=== PATIENT | female | born 1980 | race Hispanic/Latino ===

== ENCOUNTER 2018-04-22 00:57 | Emergency (ER) | payer SELFPAY ==
[2018-04-22 01:03] VITALS: BMI 21.9
[2018-04-22] MEDS ORDERED: Sodium Chloride 0.9% 1,000 ML IV STA (01:07)
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
[2018-04-22 02:37] LABS: BASO % 0.6 % (0.0-2.0); EOS # 0.1 K/uL (0.0-0.7); EOS % 2.6 % (0.0-4.0); HEMOGLOBIN 12.4 g/dL (12.0-16.0); LYMPH # 2.3 K/uL (1.0-4.3); LYMPH % 45.9 % (20.0-40.0); MEAN CELL VOLUME 97.2 fl (81.0-99.0); MEAN CORPUSCULAR HEMOGLOBIN 32.3 pg (27.0-31.0); MEAN CORPUSCULAR HGB CONC 33.2 g/dL (33.0-37.0); MEAN PLATELET VOLUME 8.4 fl (7.2-11.7); MONO # 0.4 K/uL (0.0-0.8); MONO % 8.6 % (0.0-10.0); NEUT # 2.1 K/uL (1.8-7.0); NEUT % 42.3 % (50.0-75.0); NRBC % 0.1 % (0.0-0.0); RBC 3.85 Mil/uL (3.80-5.20); RED CELL DISTRIBUTION WIDTH 12.2 % (11.5-14.5)
[2018-04-22 03:44] LABS: BLOOD UREA NITROGEN 16 mg/dl (7-17); GFR NON-AFRICAN AMERICAN > 60
[2018-04-22 03:45] LABS: ALB/GLOB RATIO 1.4 (1.0-2.1); ALBUMIN 4.5 g/dL (3.5-5.0); ALT/SGPT 12 U/L (9-52); AST/SGOT 57 U/L (14-36)
[2018-04-22 09:15] VITALS: BP 107/72; RESP 18; TEMP 97.9; O2SAT 100
[2018-04-22 09:40] VITALS: PULSE 72
== END 2018-04-22 09:40 | disposition home or self-care (01) ==
LOC: EDBD 00:57 → H.ER 00:57 → MERGE 00:57 → H.ER 09:40
DX: F10.129 Alcohol abuse with intoxication, unspecified (principal)
CPT/HCPCS: 80053; 82948; 85025; 96360; 99283; G0480; J2405; J7030